=== PATIENT | female | born 1985 | race African-American/Black ===

== ENCOUNTER 2019-09-16 03:56 | Emergency (ER) | payer OTHER ==
[2019-09-16] MEDS ORDERED: Proparacaine 0.5% Opth 15 ML BOT ONE (04:05)
[2019-09-16] MEDS ORDERED: Fluorescein Opthalmic Strip ONE (04:05)
[2019-09-16] MEDS ORDERED: Adacel (T-DAP) 0.5 ML SYRINGE ONE (04:14)
== END 2019-09-16 04:40 | disposition home or self-care (01) ==
LOC: ERS 03:56
DX: S00.211A Abrasion of right eyelid and periocular area, initial encounter (principal); W55.03XA Scratched by cat, initial encounter
CPT/HCPCS: 90471; 90715; 99283

== ENCOUNTER 2019-10-12 12:09 | Emergency (ER) | payer OTHER ==
--- NOTE | 2019-10-12 13:09 | RAD ---
RIGHT FOOT RADIOGRAPHS THREE VIEWS: Date: 10-12-2019 Provided Clinical History: Right lower leg and heel pain. FINDINGS: There is widening of the PIP joint of the fifth digit, which may reflect subluxation/dislocation. No evidence for fracture. Alignment appears otherwise anatomic. Joint spaces appear otherwise maintained . IMPRESSION: Widening of the PIP joint space may reflect subluxation/dislocation. Correlate with site of pain. POS: [email or web address]
[2019-10-12] MEDS ORDERED: Lidocaine 1% (PF) 30 ML VIAL ONE (13:53)
--- NOTE | 2019-10-12 15:04 | RAD ---
RIGHT FOOT 3 VIEWS: Date: 10/12/2019 HISTORY: Post reduction of dislocation of the fifth digit. FINDINGS/IMPRESSION: There has been interval reduction of the subluxation/dislocation of the PIP joint of the fifth digit since earlier exam at 1343 hours from same date. No acute fracture or dislocation is seen on the curr ent exam. POS: [email or web address]
== END 2019-10-12 16:13 | disposition home or self-care (01) ==
LOC: ERS 12:09
DX: S93.114A Dislocation of interphalangeal joint of right lesser toe(s), initial encounter (principal); W06.XXXA Fall from bed, initial encounter
CPT/HCPCS: 28660; J2001

== ENCOUNTER 2022-01-16 12:30 | Emergency (ER) | payer OTHER ==
[2022-01-16] MEDS ORDERED: Lidocaine Viscous Sol 2% 15 ml UD Cup ONE (15:04)
[2022-01-16] MEDS ORDERED: Dicyclomine 20 MG/2 ML VIAL ONE (15:04)
[2022-01-16] MEDS ORDERED: Mag-Al 1200 mg/1200 mg/30 ML UDCUP ONE (15:05)
[2022-01-16] MEDS ORDERED: Ibuprofen 200 MG TAB ONE (15:05)
[2022-01-16] MEDS ORDERED: Acetaminophen 500 MG TAB ONE (16:04)
[2022-01-16] MEDS ORDERED: Ondansetron ODT 4 MG TAB ONE (16:08)
== END 2022-01-16 17:25 | disposition home or self-care (01) ==
LOC: EEVIPCON 12:30 → ERS 12:30
DX: U07.1 COVID-19 (principal)
CPT/HCPCS: 87081; 87430; Q0162; U0003; U0005

== ENCOUNTER 2022-01-17 06:09 | Emergency (ER) | payer OTHER ==
[2022-01-17] MEDS ORDERED: Ibuprofen 200 MG TAB ONE (07:19)
== END 2022-01-17 13:24 | disposition home or self-care (01) ==
LOC: ERS 06:09
DX: U07.1 COVID-19 (principal)
CPT/HCPCS: 87081; 87430; 99283; Q0162; U0003; U0005